=== PATIENT | male | born 1965 | race American Indian/Alaskan Native ===

== ENCOUNTER 2017-10-03 13:52 | Emergency (ER) | payer SELFPAY ==
[2017-10-03 15:12] LABS: Basophils % (Auto) 0.5 % (0.0-1.8); Eosinophils # (Auto) 0.1 K/mm3 (0.0-0.4); Hematocrit 27.2 % (35.5-45.6); Lymphocytes # (Auto) 0.4 K/mm3 (1.2-5.4); Lymphocytes % (Auto) 12.3 % (13.4-35.0); Mean Corpuscular HGB Conc 33 % (32-34); Mean Corpuscular Hemoglobin 29 pg (28-32); Mean Corpuscular Volume 87 fl (84-94); Monocytes # (Auto) 0.4 K/mm3 (0.0-0.8); Monocytes % (Auto) 11.9 % (0.0-7.3); Platelet Count 255 K/mm3 (140-440); Red Blood Count 3.12 M/mm3 (3.65-5.03); Red Cell Distribution Width 13.6 % (13.2-15.2)
[2017-10-03 15:19] LABS: Calcium 8.4 mg/dL (8.4-10.2)
--- NOTE | 2017-10-03 17:03 | Cat Scan Report ---
FINAL REPORT PROCEDURE: CT ABDOMEN PELVIS WO CON TECHNIQUE: Computerized axial tomography of the abdomen and pelvis was performed without intravenous contrast. This study is performed without intravascular contrast material and its sensitivity for abdominal and pelvic pathology, including neoplasms, inflammation, abscess, free fluid, thrombosis, arterial dissection and infarction, is reduced compared with a contrast enhanced study. DLP 1047.49 mGy-cm. HISTORY: Pain. COMPARISON: No prior studies are available for comparison. FINDINGS: Visualized lower thorax: Mild cardiomegaly. Small pericardial effusion measuring up to 6-7 mm. Lingular scarring/atelectasis. Subtle bibasilar ill-defined centrilobular opacities. Liver: Normal size and attenuation. Spleen: Normal size and attenuation. Gallbladder and biliary system: Normal. Pancreas: Normal. Adrenals: Normal. Kidneys: Normal. GI tract: Appendix measures 6-7 mm. No significant surrounding stranding. Mild fatty infiltration of the cecum and proximal ascending colon. Lymph nodes and mesentery: Small scattered mesenteric and periaortic lymph nodes. Mildly enlarged bilateral inguinal lymph nodes. Vasculature: Normal. Bladder: Normal. Reproductive organs: Normal. Peritoneum: No free fluid. Musculoskeletal structures: Mild L4-5 and L5-S1 disc bulges. Tiny multilevel osteophytes and Schmorl's nodes with subtle L2 endplate sclerosis and possible 3 mm L2 sclerotic density. Subtle ill-defined 7 millimeter area of sclerosis in the left iliac wing and 4 mm sclerotic density in the left iliac wing. Other smaller areas of sclerotic density throughout the pelvis. Other: Small fat filled umbilical hernia. Small bilateral fat filled inguinal hernias. Pelvic phleboliths. IMPRESSION: Mild cardiomegaly. Small pericardial effusion. Ill-defined bibasilar centrilobular opacities, consider pneumonitis. Consider radiographic followup. Appendix measures 6-7 mm, top-normal (normal 6 mm or less) and is air-filled. No significant stranding. There overlap in the imaging appearance of normal and abnormal appendix. Consider clinical correlation and further evaluation including CT scan with intravenous and oral contrast if there is continued clinical concern for appendiceal pathology/subtle appendicitis. Mild fatty infiltration of the cecum and proximal ascending colon, can be within normal limits. Can be seen with steroid usage, also consider subtle colitis. Mild scattered adenopathy. Adenopathy mildly enlarged in the bilateral inguinal region, may be reactive. Consider attention on follow-up imaging if there is continued clinical concern. Subtle ill-defined areas of sclerotic density throughout the bones, may represent bone islands. Consider bone scan if there is concern for subtle blastic lesions. Small fat filled umbilical and inguinal hernias.
--- NOTE | 2017-10-03 17:22 | Cat Scan Report ---
FINAL REPORT PROCEDURE: CT HEAD/BRAIN WO CON TECHNIQUE: Computerized tomography of the head was performed without contrast material. DLP 1147.33 mGy-cm. HISTORY: Dizziness. COMPARISON: No prior studies are available for comparison. FINDINGS: Skull and scalp: Normal. Paranasal sinuses: Moderate bilateral maxillary sinusitis. Mild scattered ethmoid sinusitis. Minimal frontal sinusitis. Ventricles and subarachnoid spaces: Normal. Cerebrum: No evidence of hemorrhage, acute infarction or mass . Cerebellum and brainstem: No evidence of hemorrhage, acute infarction or mass. Vasculature: Normal. Comments: Mild irregularity about the maxillary process seen on spool cleaner with possible periapical lucency about right maxillary incisor and molar, incompletely characterized on this study. Bilateral parotid masses, the largest low-attenuation lesion in the right parotid measures 2.0 cm. Small occipital lymph nodes. IMPRESSION: No CT evidence of acute intracranial pathology. Consider MRI of the brain for further evaluation if there is continued clinical concern and if patient has no contraindication to MRI. Sinusitis. Periapical lucency about right maxillary teeth, consider dental consultation. Bilateral parotid masses, largest low-attenuation lesion on the right. Consider lymph nodes. Consider correlation clinically if patient is immunocompromised and there is concern for lymphoepithelial cysts/lymphoproliferative etiology. Also cannot exclude parotid masses/nodules. Consider dedicated imaging of the parotid glands if there is continued clinical concern.
--- NOTE | 2017-10-03 21:29 | Emergency Department Report ---
- General Chief complaint: Weakness Stated complaint: GENERAL SICKNESS Time Seen by Provider: 10/03/17 21:05 Source: patient, family Mode of arrival: Stretcher Limitations: No Limitations - History of Present Illness Initial comments: Patient is a 52-year-old male presents to emergency room via ems with complaints of generalized weakness and near syncope and lightheadedness 2 days. Patient has a past medical history of diabetes hypertension and chronic kidney disease stage V on hemodialysis. Patient states that on hemodialysis for about 1 month. Patient has a port in his right chest. Patient states he recently had a URI and cough that is improving that started 1 week ago. Patient denies fever and chills. Patient denies chest pain and shortness of breath and diaphoresis. MD Complaint: generalized weakness -: Sudden, days(s) (2 days ago) Location: generalized Severity: severe Severity scale (0 -10): 0 Associated Symptoms: loss of appetite, other (near syncope) - Related Data Previous Rx's Medication Instructions Recorded Last Taken Type Amoxicillin [Amoxicillin TAB] 875 mg PO BID 10 Days #20 tablet 10/03/17 Unknown Rx Allergies Allergy/AdvReac Type Severity Reaction Status Date / Time No Known Allergies Allergy Unverified 10/03/17 14:37 ED Review of Systems ROS: Stated complaint: GENERAL SICKNESS Other details as noted in HPI Constitutional: denies: chills, fever Eyes: denies: eye pain, eye discharge, vision change ENT: denies: ear pain, throat pain Respiratory: cough. denies: shortness of breath, wheezing Cardiovascular: denies: chest pain, palpitations Endocrine: no symptoms reported Gastrointestinal: denies: abdominal pain, nausea, diarrhea Genitourinary: denies: urgency, dysuria Musculoskeletal: denies: back pain, joint swelling, arthralgia Skin: denies: rash, lesions Neurological: weakness. denies: headache, paresthesias Psychiatric: denies: anxiety, depression Hematological/Lymphatic: denies: easy bleeding, easy bruising ED Past Medical Hx - Past Medical History Hx Hypertension: Yes Hx Diabetes: Yes Hx Renal Disease: Yes - Surgical History Past Surgical History?: Yes Additional Surgical History: Port-A-Cath placed in right chest - Family History Family history: hypertension - Social History Smoking Status: Never Smoker Substance Use Type: None - Medications Home Medications: Home Medications Medication Instructions Recorded Confirmed Last Taken Type Amoxicillin [Amoxicillin TAB] 875 mg PO BID 10 Days #20 tablet 10/03/17 Unknown Rx ED Physical Exam - General Limitations: No Limitations General appearance: alert, in no apparent distress - Head Head exam: Present: atraumatic, normocephalic - Eye Eye exam: Present: normal appearance - ENT ENT exam: Present: mucous membranes moist - Neck Neck exam: Present: normal inspection - Respiratory Respiratory exam: Present: normal lung sounds bilaterally. Absent: respiratory distress - Cardiovascular Cardiovascular Exam: Present: regular rate, normal rhythm, other (right chest Port-A-Cath). Absent: systolic murmur, diastolic murmur, rubs, gallop - GI/Abdominal GI/Abdominal exam: Present: soft, normal bowel sounds, other (no tenderness noted on palpation in all 4 quadrants) - Rectal Rectal exam: Present: deferred - Extremities Exam Extremities exam: Present: normal inspection - Back Exam Back exam: Present: normal inspection - Neurological Exam Neurological exam: Present: alert, oriented X3, CN II-XII intact, reflexes normal, other (sensory exam intact, motor exam intact, ) - Psychiatric Psychiatric exam: Present: normal affect, normal mood - Skin Skin exam: Present: warm, dry, intact, normal color. Absent: rash ED Course Vital Signs 10/03/17 10/03/17 10/03/17 14:32 18:55 20:36 Temperature 98.3 F 98.6 F Pulse Rate 104 H 84 Respiratory 16 18 17 Rate Blood Pressure 168/92 Blood Pressure 150/87 [Left] O2 Sat by Pulse 100 98 Oximetry - Reevaluation(s) Reevaluation #1: Stable for discharge. Patient has dialysis scheduled for tomorrow morning at 6 AM 10/03/17 23:27 ED Medical Decision Making - Lab Data Result diagrams: 10/03/17 14:48 10/03/17 14:48 - Radiology Data Radiology results: report reviewed No acute findings on head CT except for sinusitis. CT abdomen reviewed. - Medical Decision Making Patient is stable for discharge. All labs and diagnostics reviewed with patient. Patient given follow-up instructions and discharge instructions as well. Patient voiced understanding. - Differential Diagnosis uri, near syncope, sinusitis, Critical care attestation.: If time is entered above; I have spent that time in minutes in the direct care of this critically ill patient, excluding procedure time. ED Disposition Clinical Impression: Sinusitis, Gastroenteritis, URI (upper respiratory infection), Near syncope, Lightheadedness, Chronic kidney disease, stage V requiring chronic dialysis, Chronic anemia, Weakness Disposition: DC-01 TO HOME OR SELFCARE Is pt being admited?: No Does the pt Need Aspirin: No Condition: Stable Instructions: Sinusitis (ED), Near Syncope (ED) Additional Instructions: Patient to follow up with primary care in 3-5 days. Patient to continue with dialysis schedule. Patient to follow-up with neurologist in 3-5 days. Patient to return to ER if condition worsens. Patient to take Tylenol when necessary. Patient to increase water. Patient to rest. Prescriptions: Amoxicillin [Amoxicillin TAB] 875 mg PO BID 10 Days #20 tablet Referrals: PRIMARY CARE, [Primary Care Provider] - 3-5 Days Time of Disposition: 23:23
[2017-10-03] MEDS ORDERED: XYLOCAINE 1% MPF 5 mL INFILTRATI ONE (23:15)
[2017-10-03] MEDS ORDERED: ROCEPHIN IM ONE (23:15)
[2017-10-03 23:57] VITALS: BP 156/88
== END 2017-10-03 23:56 | disposition home or self-care (01) ==
LOC: ED 13:52
DX: J32.9 Chronic sinusitis, unspecified (principal); K52.9 Noninfective gastroenteritis and colitis, unspecified; J06.9 Acute upper respiratory infection, unspecified; R55 Syncope and collapse; D64.9 Anemia, unspecified; E11.22 Type 2 diabetes mellitus with diabetic chronic kidney disease; I12.0 Hypertensive chronic kidney disease with stage 5 chronic kidney disease or end stage renal disease; N18.5 Chronic kidney disease, stage 5
CPT/HCPCS: 36415; 70450; 74176; 80048; 82962; 85025; 93005; 93010; 96372; 99284; J0696; J2920